=== PATIENT | female | born 1955 | race Caucasian/White ===

== ENCOUNTER → 2017-01-24 | Outpatient (CLI) | payer OTHER ==
[~2017-01-24] MED LIST: ACETAMINOPHEN PO; ALBUTEROL SULFAT8 MG; ALBUTEROL17 GM INH; AMITIZA24 MCG PO; ASPIRIN81 M2 PO; ASPIRINEC PO; BENZONATATE PO; BONINE25 M1 PO; CARVEDILOL3.125 MG PO; CELEXA PO; CIPRO PO; CLOPIDOGREL75 MG PO; COREG3.125 MG PO; COZAAR100 MG PO; CRESTOR PO; CRESTOR40 MG PO; DILANTIN PO; EFFIENT10 MG PO; FOLIC ACID PO; FUROSEMIDE40 MG PO; HYDROCODON-ACE1 EAC5 PO; KCL PO; KLOR-CON PO; LASIX PO; LIPITOR80 MG PO; LISINOPRIL-HCTZ1 T15 PO; LOPRESSOR PO; LORTAB 7.51 TAB 7.5/ PO; LOVAZA1 G PO; MEDROL PO; METFORMIN HCL500 M1 PO; MYLANTA LIQ355 ML PO; NICOTINE TRANSD21 MG TOP; NITRODISC0.4 MG SL; NITROGLYCERIN12 GM; NITROQUICK0.4 MG SL; NORCO 7.5-3251 EACH PO; NORVASC PO; PANTOPRAZOLE SO40 MG PO; PLAVIX PO; PRILOSEC PO; PROMETHAZINE HC25 MG PO; PROTONIX PO; ROBITUSSIN ALL118 ML PO; STOOL SOFTENER PO; SYMBICORT INH; TEMAZEPAM PO; TEMAZEPAM30 MG PO; TESSALON PERLE100 M1 PO; VICODIN 5/1 TAB 5/50 PO; XANAX0.5 M1 PO; XANAX0.5 MG PO; ZESTORETIC 10-1 EACH PO; ZESTORETIC 20-1 EACH PO; ZITHROMAX PO
[2017-01-24 10:14] LABS: CREATININE SERUM 0.6 mg/dL (0.6-1.4); GLOM FILT RATE Estimated 97.7 mL/min (>60)
== END | disposition home or self-care (01) ==
LOC: CLAB 09:11
PROVIDERS: Nurse Practitioner Family
DX: I71.4 Abdominal aortic aneurysm, without rupture (principal); I65.29 Occlusion and stenosis of unspecified carotid artery
CPT/HCPCS: 36415; 82565

== ENCOUNTER → 2017-01-31 | Outpatient (CLI) | payer OTHER ==
--- NOTE | ~2017-01-31 | CT14 ---
[facility] A Service of [facility] & [facility] RADIOLOGY TEXT RESULTS PATIENT: LOPEZ CARDENAS [facility] #: [id number] AGE: [address]: DOMINIQUE WOMACK SEX: F ORDER DR: [id number] [facility] [address] [place], [place] [address] [id number] O MR#: [id number] Acc #: [id number] NAME: LOPEZ CARDENAS : 1955 SEX: F STUDY DATE/TIME: 01/31/2017 9:44 UNIT: [facility] ROOM: STUDY DESCRIPTION: CT Angio Abdomen and Pelvis Attending Physician: Dominique Womack Referring Physician: Dominique Womack Ordering Physician: Physician Non-Staff Primary Care Physician: Riki Quinones M.D. MEDICAL IMAGING REPORT This report is preliminary unless electronic signature is present EXAM CT angiogram of the abdomen and pelvis 01/31/2017 INDICATIONS Aortic aneurysm. Patient also reports some right upper quadrant pain for 2 months. Most recent followup study from the CT standpoint was in June 2014. She then had an aortic ultrasound on January 03, 2017. TECHNIQUE Axial CT imaging was obtained from dome of the diaphragm through the symphysis pubis following the administration of intravenous contrast material. This CT exam was performed with one or more of the following radiation dose reduction techniques: automatic exposure control, adjustment of mA and/or kV according to patient size, and iterative reconstruction. FINDINGS Images through the lung bases demonstrate background emphysematous changes. There is an area of nodularity within the right lower lobe which is favored to represent some chronic scarring. This patient has some mild narrowing at the origin of the celiac axis, superior mesenteric artery demonstrates a replaced right hepatic artery which is a normal anatomic variant. There is a single right renal artery without any significant flow-limiting stenosis. 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 Bilobed aneurysmal dilatation of the infrarenal abdominal aorta has increased when compared to the prior study. The more superior component measures up to 4.1 x 3.9 cm, previously it measured 3.6 x 3.4 cm. Inferior component measures 2.9 x 2.8 cm, previously 2.5 x 2.5 cm. Patient does have diffuse disease involving the common iliac arteries bilaterally. This does appear to be slightly more significant on the right. There is also a focal aneurysm of the left common iliac artery at [facility] A Service of [facility] & [facility] RADIOLOGY TEXT RESULTS PATIENT: LOPEZ CARDENAS LOCATION: [facility] : 53 UNIT #: [id number] AGE: [address]: DOMINIQUE WOMACK SEX: F ORDER DR: its origin. This area measures up to about 8 mm. Common femoral arteries are patent bilaterally. Inferior mesenteric artery is also patent. Liver appears unremarkable as are the gallbladder, spleen, stomach, proximal small bowel, adrenal glands and pancreas. I think the kidneys also appear normal. There is no free fluid or adenopathy seen within the abdomen or pelvis. The uterus is surgically absent. Urinary bladder appears unremarkable. Review of bony windows does not demonstrate any aggressive osseous abnormalities. IMPRESSION 1. Patient has had an interval increase in a bilobed infrarenal abdominal aortic aneurysm with measurements as noted above. 2. 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 3. 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 4. Replaced right hepatic arteries and superior mesenteric artery. 5. The patient does have 3 left renal arteries. Dictated by... Odette Alvarez M.D. THIS IS AN ELECTRONICALLY VERIFIED REPORT Odette Alvarez M.D. at 01/31/2017 4:51 PM STEPHEN/alexandro TD: 01/31/2017 15:52 JOB #: [id number] MEDICAL IMAGING REPORT Page 1 of 1 COPY
== END | disposition home or self-care (01) ==
LOC: CCAT 08:44
DX: I71.4 Abdominal aortic aneurysm, without rupture (principal); I65.29 Occlusion and stenosis of unspecified carotid artery; I72.3 Aneurysm of iliac artery; I70.8 Atherosclerosis of other arteries; Z98.890 Other specified postprocedural states
CPT/HCPCS: 74174; Q9967

== ENCOUNTER → 2017-03-12 | Outpatient (CLI) | payer OTHER ==
[2017-03-12 10:09] LABS: CALCIUM SERUM 8.9 mg/dL (8.4-10.2); CREATININE SERUM 0.6 mg/dL (0.6-1.4); GLOM FILT RATE Estimated 97.7 mL/min (>60)
== END | disposition home or self-care (01) ==
LOC: CLAB 09:05
PROVIDERS: Internal Medicine Cardiovascular Disease
DX: R60.9 Edema, unspecified (principal)
CPT/HCPCS: 36415; 80048

== ENCOUNTER → 2017-03-31 | Outpatient (CLI) | payer OTHER ==
--- NOTE | ~2017-03-31 | MY29 ---
[facility] A Service of [facility] & [facility] RADIOLOGY TEXT RESULTS PATIENT: LOPEZ CARDENAS LOCATION: [facility] : 53 UNIT #: [id number] AGE: [address]: Riki Quinones MD SEX: F ORDER DR: [id number] [facility] [address] [place], [place] [address] [id number] O MR#: [id number] Acc #: [id number] NAME: LOPEZ CARDENAS. : 1955 SEX: F STUDY DATE/TIME: 03/31/2017 12:42 UNIT: [facility] ROOM: STUDY DESCRIPTION: MY BON SCREENING W/ CAD BILAT Attending Physician: Riki Quinones M.D. Ordering Physician: Riki Quinones M.D. Primary Care Physician: Riki Quinones M.D. MEDICAL IMAGING REPORT This report is preliminary unless electronic signature is present EXAM Digital screening mammogram 03/31/2017 HISTORY 61-year-old woman no risk elevation. Bruise right breast secondary to recent fall. Annual screen. COMPARISON 01/28/2012. FINDINGS Digital imaging of each breast was completed utilizing screening protocol. Review includes FDA-approved CAD device. Breast parenchyma is predominantly fatty replaced. Residual parenchymal opacity subareolar anterior third locations bilaterally. I see no suspicious mass. There are no interval occurring microcalcifications and no architectural deformity. IMPRESSION Negative mammogram. Annual screening recommended. Patients over the age of 40 are entered into a reminder system with target due date for the next mammogram. A result letter will also be sent to the patient. BIRADS: 1 Negative Dictated by... Marcos Delgado M.D. THIS IS AN ELECTRONICALLY VERIFIED REPORT Marcos Delgado M.D. at 04/05/2017 7:04 AM [facility] Service of [facility] & [facility] RADIOLOGY TEXT RESULTS PATIENT: LOPEZ CARDENAS LOCATION: [facility] : 53 UNIT #: [id number] AGE: [address]: Riki Quinones MD SEX: F ORDER DR: PATRICE/faye TD: 04/05/2017 06:12 JOB #: [id number] MEDICAL IMAGING REPORT Page 1 of 1 COPY
== END | disposition home or self-care (01) ==
LOC: CWCC 12:12
DX: Z12.31 Encounter for screening mammogram for malignant neoplasm of breast (principal)
CPT/HCPCS: G0202